=== PATIENT | female | born 1990 | race Caucasian/White ===

== ENCOUNTER 2022-04-10 01:24 | Day surgery (SDC) | payer OTHER ==
[2022-04-10 02:01] VITALS: BMI 49.6
[2022-04-10] MEDS ORDERED: hydrALAZINE 20 MG/ML VIAL SLOW IVP PRN (04:09)
== END 2022-04-10 04:05 | disposition home or self-care (01) ==
LOC: CSHLD/OP 01:24
PROVIDERS: ATTEND Student in an Organized Health Care Education/Training Program
DX: O47.1 False labor at or after 37 completed weeks of gestation (principal); O36.8330 Maternal care for abnormalities of the fetal heart rate or rhythm, third trimester, not applicable or unspecified; Z3A.39 39 weeks gestation of pregnancy
CPT/HCPCS: 99283

== ENCOUNTER 2022-04-17 19:00 | Inpatient (IN) | payer OTHER ==
[2022-04-17 19:43] VITALS: BMI 49.6
[2022-04-17] MEDS ORDERED: HYDROcodone/Acetaminophen 5/325 mg Tablet PO PRN (20:52)
[2022-04-17] MEDS ORDERED: Promethazine HCl 25 MG/ML VIAL IM PRN (20:52)
[2022-04-17] MEDS ORDERED: Diphenoxylate HCl/Atropine Tablet PO PRN (20:52)
[2022-04-17] MEDS ORDERED: Misoprostol 200 MCG TAB PR PRN (20:52)
[2022-04-17] MEDS ORDERED: Carboprost 250 MCG/ML AMP IM PRN (20:52)
[2022-04-17] MEDS ORDERED: Lidocaine 1% (PF) 30 ML VIAL SC PRN (20:52)
[2022-04-17] MEDS ORDERED: hydrALAZINE 20 MG/ML VIAL SLOW IVP PRN (20:52)
[2022-04-17] MEDS ORDERED: Ibuprofen 800 MG TAB PO PRN (20:52)
[2022-04-17] MEDS ORDERED: Butorphanol Tartrate 1 MG/ML VIAL SLOW IVP PRN (20:52)
[2022-04-17] MEDS ORDERED: Acetaminophen 500 MG TAB PO PRN (20:52)
[2022-04-17] MEDS ORDERED: Ondansetron PF 4 MG/2 ML Vial IVP PRN (20:52)
[2022-04-17] MEDS ORDERED: Methylergonovine 0.2 MG/ML VIAL IM PRN (20:52)
[2022-04-17 20:58] LABS: SARS-CoV-2 NAA Rapid Test Not Detected (NotDetected)
[2022-04-17] MEDS ORDERED: NS w/ Oxytocin 30 units 500 ML IV SCH ×2 (21:00)
[2022-04-17] MEDS: Misoprostol 100 MCG TAB VAG SCH (21:16)
[2022-04-17] MEDS: Lactated Ringer's 1,000 ML IV SCH (21:17)
[2022-04-17 21:39] LABS: Hemoglobin 12.3 g/dL (12.0-15.5); Mean Corpuscular HGB CONC 34.2 g/dL (32.0-36.0); Mean Corpuscular Hemoglobin 29.4 pg (27.0-33.0); Mean Corpuscular Volume 86.1 fl (81.6-98.3); Platelet Count 194 10x3/uL (150-450); RBC Distribution Width 13.3 % (11.5-14.5); Red Blood Cell (RBC) Count 4.18 10x6/uL (3.90-5.03); White Blood Cell (WBC) Count 10.1 10x3/uL (3.5-10.5)
[2022-04-17 22:13] LABS: HBSAg Index 0.18 S/CO (0-0.99); Hep B Surf Ag Non-Reactive S/CO (NonReactive)
[2022-04-17 22:14] LABS: Syphilis Antibody Nonreactive (Nonreactive); Syphilis Antibody Index 0.02 S/CO (<1.00 Non-Reactive)
[2022-04-18] MEDS ORDERED: Misoprostol 100 MCG TAB PO SCH ×2 (08:30→13:00)
[2022-04-18] MEDS ORDERED: Fentanyl 2 mcg/Bup 0.1% Cadd 100 ML ONE (17:27)
[2022-04-18] MEDS ORDERED: Promethazine HCl 25 MG/ML VIAL IM PRN ×2 (18:03→23:24)
[2022-04-18] MEDS ORDERED: ePHEDrine Sulfate 50 MG/10 ML VIAL SLOW IVP PRN (18:03)
[2022-04-18] MEDS ORDERED: Acetaminophen 325 MG TAB PO PRN (18:03)
[2022-04-18] MEDS ORDERED: Naloxone HCl 0.4 mg/ml Vial IVP PRN ×2 (18:03)
[2022-04-18] MEDS ORDERED: diphenhydrAMINE 50 MG/ML VIAL IVP PRN (18:03)
[2022-04-18] MEDS ORDERED: Ondansetron PF 4 MG/2 ML Vial IVP PRN (18:03)
[2022-04-18] MEDS ORDERED: Lactated Ringer's 500 ML IV PRN (18:03)
[2022-04-18] MEDS ORDERED: Moisturizing Cream (Eucerin) 113 GM JAR TOP PRN (18:03)
[2022-04-18] MEDS ORDERED: Communication Order-Pharmacy FS SCH (18:15)
[2022-04-18] MEDS ORDERED: Famotidine/PF 20 mg/2ml Vial ONE (21:49)
[2022-04-18] MEDS ORDERED: CEFAZOLIN 2 GM VIAL ONE (21:50)
[2022-04-18] MEDS ORDERED: Azithromycin 500 MG VIAL ONE (21:50)
[2022-04-18] MEDS ORDERED: PROPOFOL 20 ML ONE (22:03)
[2022-04-18] MEDS ORDERED: Ondansetron PF 4 MG/2 ML Vial ONE (22:08)
[2022-04-18] MEDS ORDERED: Oxytocin 10 UNITS/ML VIAL ONE (22:08)
[2022-04-18] MEDS ORDERED: Ketorolac Tromethamine 30 MG/ML VIAL ONE (22:08)
[2022-04-18] MEDS ORDERED: Tranexamic Acid 1,000 MG/10 ML VIAL ONE (22:40)
[2022-04-18] MEDS ORDERED: Methylergonovine 0.2 MG/ML VIAL ONE (22:40)
[2022-04-18] MEDS ORDERED: Carboprost 250 MCG/ML AMP ONE (22:40)
[2022-04-18] MEDS ORDERED: Misoprostol 200 MCG TAB ONE (22:40)
[2022-04-18] MEDS ORDERED: Meperidine HCl/PF 25 MG/ML VIAL SLOW IVP PRN (23:24)
[2022-04-18] MEDS ORDERED: Ketorolac Tromethamine 30 MG/ML VIAL IVP PRN (23:24)
[2022-04-18] MEDS ORDERED: HYDROmorphone 2 MG/ML VIAL SLOW IVP PRN (23:24)
[2022-04-18] MEDS ORDERED: Ondansetron HCl/PF 4 MG/2 ML Vial IVP PRN (23:24)
[2022-04-18] MEDS ORDERED: Promethazine HCl 25 MG/ML VIAL IVPB PRN (23:24)
[2022-04-19] MEDS ORDERED: Lidocaine 1% (PF) 30 ML VIAL ONE (00:54)
[2022-04-19] MEDS ORDERED: Tranexamic Acid 1,000 MG/10 ML VIAL ONE (00:54)
[2022-04-19] MEDS ORDERED: NS w/ Oxytocin 30 units 500 ML ONE (00:54)
[2022-04-19] MEDS ORDERED: Misoprostol 200 MCG TAB ONE (00:54)
[2022-04-19] MEDS ORDERED: Carboprost 250 MCG/ML AMP ONE (00:55)
[2022-04-19] MEDS ORDERED: Methylergonovine 0.2 MG/ML VIAL ONE (00:55)
[2022-04-19] MEDS ORDERED: Promethazine HCl 25 MG/ML VIAL IM PRN (02:14)
[2022-04-19] MEDS ORDERED: Zolpidem Tartrate 5 MG TAB PO PRN (02:14)
[2022-04-19] MEDS ORDERED: Acetaminophen 325 MG TAB PO PRN (02:14)
[2022-04-19] MEDS ORDERED: Lanolin Ointment 7 GM TUBE TOP PRN (02:14)
[2022-04-19] MEDS ORDERED: Bisacodyl 10 MG SUPP PR PRN (02:14)
[2022-04-19] MEDS ORDERED: hydrALAZINE 20 MG/ML VIAL SLOW IVP PRN (02:14)
[2022-04-19] MEDS ORDERED: diphenhydrAMINE 25 MG CAP PO PRN (02:14)
[2022-04-19] MEDS ORDERED: Ondansetron PF 4 MG/2 ML Vial IVP PRN (02:14)
[2022-04-19] MEDS ORDERED: Boostrix 0.5 ML (Tdap) VIAL (>/=7 yrs of age) IM ONE (02:14)
[2022-04-19] MEDS: HYDROcodone/Acetaminophen 5/325 mg Tablet PO PRN ×5 (03:08→21:20)
[2022-04-19 05:19] LABS: Hemoglobin 10.7 g/dL (12.0-15.5); Mean Corpuscular HGB CONC 34.9 g/dL (32.0-36.0); Mean Corpuscular Hemoglobin 30.1 pg (27.0-33.0); Mean Corpuscular Volume 86.2 fl (81.6-98.3); Platelet Count 165 10x3/uL (150-450); RBC Distribution Width 13.2 % (11.5-14.5); Red Blood Cell (RBC) Count 3.56 10x6/uL (3.90-5.03); White Blood Cell (WBC) Count 13.4 10x3/uL (3.5-10.5)
[2022-04-19] MEDS: Ibuprofen 800 MG TAB PO SCH ×3 (06:10→22:00)
[2022-04-19] MEDS: Misoprostol 100 MCG TAB VAG SCH ×2 (07:33→07:34)
[2022-04-19] MEDS: Lactated Ringer's 1,000 ML IV SCH (07:35)
[2022-04-19] MEDS: Ferrous Sulfate 325 MG TAB PO SCH ×2 (09:04→21:20)
[2022-04-19] MEDS: Docusate 100 MG CAP PO SCH ×2 (09:06→21:20)
[2022-04-19] MEDS: Prenatal Vitamin 1 TAB PO SCH (09:06)
[2022-04-19] MEDS: Simethicone Chewable 80 MG TAB PO PRN ×2 (09:07→14:04)
[2022-04-19] MEDS ORDERED: Lidocaine 2% PF 5 ML VIAL ONE (14:00)
[2022-04-19] MEDS ORDERED: Bupivacaine PF 0.5% 30 ML VIAL ONE (14:00)
[2022-04-19] MEDS ORDERED: Bupivacaine 0.25% HCL 30 ML VIAL ONE (14:00)
[2022-04-20] MEDS: Ibuprofen 800 MG TAB PO SCH ×3 (05:07→21:21)
[2022-04-20] MEDS: Ferrous Sulfate 325 MG TAB PO SCH ×2 (07:21→21:23)
[2022-04-20] MEDS: HYDROcodone/Acetaminophen 5/325 mg Tablet PO PRN ×4 (09:23→23:24)
[2022-04-20] MEDS: Prenatal Vitamin 1 TAB PO SCH (09:24)
[2022-04-20] MEDS: Docusate 100 MG CAP PO SCH ×2 (09:24→21:22)
[2022-04-21] MEDS: HYDROcodone/Acetaminophen 5/325 mg Tablet PO PRN ×3 (03:54→14:55)
[2022-04-21] MEDS: Ibuprofen 800 MG TAB PO SCH ×2 (05:49→14:04)
[2022-04-21 08:42] VITALS: BP 101/61; TEMP 98.3
[2022-04-21] MEDS: Ferrous Sulfate 325 MG TAB PO SCH (09:03)
[2022-04-21] MEDS: Docusate 100 MG CAP PO SCH (10:47)
[2022-04-21] MEDS: Prenatal Vitamin 1 TAB PO SCH (10:47)
== END 2022-04-21 15:20 | disposition home or self-care (01) | DRG 788 ==
LOC: CSHLD 19:10 → CSHPP 04-19 07:45
PROVIDERS: ADMIT Student in an Organized Health Care Education/Training Program; ATTEND Student in an Organized Health Care Education/Training Program
PROC: 3E0P7VZ Introduction of Hormone into Female Reproductive, Via Natural or Artificial Opening (ICD-10-PCS; 2022-04-17)
PROC: 3E033VJ Introduction of Other Hormone into Peripheral Vein, Percutaneous Approach (ICD-10-PCS; 2022-04-17)
PROC: 10D00Z1 Extraction of Products of Conception, Low, Open Approach (ICD-10-PCS; principal; 2022-04-18)
DX: O42.02 Full-term premature rupture of membranes, onset of labor within 24 hours of rupture (principal); Z3A.40 40 weeks gestation of pregnancy; Z37.0 Single live birth; Z20.822 Contact with and (suspected) exposure to COVID-19; O99.214 Obesity complicating childbirth; O76 Abnormality in fetal heart rate and rhythm complicating labor and delivery; O61.0 Failed medical induction of labor; D50.0 Iron deficiency anemia secondary to blood loss (chronic); O90.81 Anemia of the puerperium; E66.01 Morbid (severe) obesity due to excess calories
CPT/HCPCS: 36415; 36416; 51702; 85027; 86780; 86850; 86900; 86901; 87340; J1200; J1885; J2001; J2405; J2590; J2704; J7120; S0020; U0002